=== PATIENT | male | born 1985 | race Caucasian/White ===

== ENCOUNTER 2020-12-25 22:03 | Observation (INO) ==
[2020-12-25] MEDS ORDERED: SODIUM CHLORIDE 0.9% 1,000 ML IV STA (22:56)
[2020-12-25] MEDS ORDERED: ONDANSETRON 4 MG/2 ML VIAL ONE (23:22)
[2020-12-25 23:34] LABS: ABG Base Excess -2.9 MMOL/L (-2.5-2.5); ABG HCO3 21.8 MMOL/L (20-26); ABG PCO2 51.6 MM HG (35-48); ABG PH 7.287 (7.35-7.45); ABG PO2 61.9 MM HG (80-95); ABG TCO2 21.5 MMOL/L (23-27); Allen Test Positive
[2020-12-25 23:59] LABS: Basophils % 0.2 % (0.0-0.8); Hematocrit 42.6 VOL% (42.0-52.0); Hemoglobin 14.1 GM/DL (14.0-18.0); Immature Granulocytes % 0.8 %; Immature Granulocytes Absolute 0.18 #; Lymphocytes # 1.2 10*3/uL (1.4-4.0); Lymphocytes % 5.5 % (21.2-54.2); Mean Corpuscular HGB Conc 33.1 GM/DL (32-36); Mean Corpuscular Volume 91.8 FL (87-102); Mean Platelet Volume 9.1 FL (9.6-12.0); Monocytes % 6.3 % (1.7-12.7); Neutrophils % 87.2 % (38.7-73.9); Platelet Count 250 T/CUMM (130-400); Red Blood Count 4.64 MC/CUMM (3.8-5.5); Red Cell Distribution Width 12.9 % (9.3-17.3); White Blood Count 21.3 T/CUMM (4-12)
[2020-12-26 00:18] LABS: Alanine Aminotransferase 64 U/L (16-61); Albumin 3.9 G/DL (3.4-5.0); Alkaline Phosphatase 51 U/L (45-117); Aspartate Amino Transferase 55 U/L (0-37); Blood Urea Nitrogen 19 MG/DL (7-18); Calcium 8.2 MG/DL (8.5-10.1); Carbon Dioxide 23 MMOL/L (21-32); Estimated Glom Filtration Rate 67 ML/MIN; Glucose 139 MG/DL (74-106); Osmolality,Calculated 284.3 MOS/KG (273-304); Potassium 3.4 MMOL/L (3.5-5.1); Sodium 141 MMOL/L (136-145); Total Protein 6.5 G/DL (6.4-8.2)
[2020-12-26] MEDS ORDERED: POTASSIUM CHLORIDE 20 MEQ TABLET PO STA (00:20)
[2020-12-26 00:27] LABS: Band Neutrophils 5 % (0-10); Lymphocytes 4 % (20-55); Platelet Estimate Normal; Segmented Neutrophils 85 % (50-85); Total Cells Counted 100
[2020-12-26 00:28] LABS: PT Patient Result 11.4 SECS (10.5-12.0)
[2020-12-26] MEDS ORDERED: VANCOMYCIN INJ 1,000 MG in SODIUM CHLORIDE 0.9% 250 ML IV STA (01:23)
[2020-12-26 01:38] LABS: Bilirubin,Urine Negative (Negative); Blood, Urine Negative (Negative); Glucose,Urine (UA) >=500 mg/dL (Negative); Granular Casts,Urine 6 /LPF (0-1); Ketones,Urine Negative (Negative); Mucus,Urine Occasional /LPF (Occasional); Nitrite,Urine Negative (Negative); Protein,Urine 100 MG/DL; RBC,Urine 4 /HPF (0-4); Squamous Epithelial Cell,Urine Occasional /HPF (0-10); Urine Appearance CLEAR (Clear); Urine Color Yellow (Yellow); Urine Specific Gravity 1.013 (1.001-1.035); Urine Urobilinogen < 2.0 EU/DL (0.2-1.0)
[2020-12-26 01:45] LABS: Barbiturates Screen,Urine Negative (Negative); Benzodiazepines Screen,Urine Negative (Negative); Cannabinoid Screen,Urine Negative (Negative); Opiate Screen,Urine Negative (Negative); Phencyclidine Screen,Urine Negative (Negative)
[2020-12-26] MEDS ORDERED: GLUCAGON 1 MG VIAL IM PRN (02:46)
[2020-12-26] MEDS ORDERED: ONDANSETRON 4 MG/2 ML VIAL IV PRN (02:46)
[2020-12-26] MEDS ORDERED: ACETAMINOPHEN 325 MG TABLET PO PRN (02:46)
[2020-12-26] MEDS ORDERED: DEXTROSE 50% 25 GM/50 ML VIAL IV PRN (02:46)
[2020-12-26 04:43] LABS: Basophils % 0.1 % (0.0-0.8); Hematocrit 40.7 VOL% (42.0-52.0); Hemoglobin 13.9 GM/DL (14.0-18.0); Immature Granulocytes % 0.4 %; Immature Granulocytes Absolute 0.06 #; Lymphocytes # 0.8 10*3/uL (1.4-4.0); Mean Corpuscular HGB Conc 34.2 GM/DL (32-36); Mean Corpuscular Volume 90.6 FL (87-102); Mean Platelet Volume 9.1 FL (9.6-12.0); Neutrophils % 90.5 % (38.7-73.9); Platelet Count 219 T/CUMM (130-400); Red Blood Count 4.49 MC/CUMM (3.8-5.5); Red Cell Distribution Width 12.9 % (9.3-17.3); White Blood Count 15.3 T/CUMM (4-12)
[2020-12-26 05:06] LABS: Albumin 3.9 G/DL (3.4-5.0); Bilirubin,Total 0.9 MG/DL (0.2-1.0); Calcium 8.2 MG/DL (8.5-10.1); Osmolality,Calculated 277.5 MOS/KG (273-304); Potassium 4.8 MMOL/L (3.5-5.1); Total Protein 6.5 G/DL (6.4-8.2)
[2020-12-26] MEDS: SODIUM CHLORIDE 0.9% 1,000 ML IV SCH ×2 (06:20→10:24)
[2020-12-26] MEDS ORDERED: ENOXAPARIN 40 MG/0.4 ML SYRINGE SUBCUT SCH (07:00)
[2020-12-26] MEDS: PANTOPRAZOLE 40 MG TABLET PO SCH ×2 (08:32→08:36)
[2020-12-26] MEDS: LEVOFLOXACIN INJ 750 MG/150 ML PREMIX IV SCH ×2 (08:32→08:36)
[2020-12-26 12:02] VITALS: BP 126/82
[2020-12-27] MEDS ORDERED: LEVOFLOXACIN 750 MG TABLET PO SCH (09:00)
== END 2020-12-26 13:27 | disposition home or self-care (01) ==
LOC: EDUNIT# → EDBD → N.EDINP 22:03 → N.ED 22:03 → N.5E 12-26 05:06
PROVIDERS: ADMIT Hospitalist; ATTEND Hospitalist

== ENCOUNTER 2021-07-08 00:49 | Inpatient (IN) ==
[2021-07-08] MEDS ORDERED: NALOXONE 0.4 MG/ML VIAL ONE (00:55)
[2021-07-08] MEDS ORDERED: NALOXONE 0.4 MG/ML VIAL IV PRN (00:57)
[2021-07-08] MEDS ORDERED: SODIUM CHLORIDE 0.9% 1,000 ML IV STA ×2 (00:57→04:05)
[2021-07-08 01:12] LABS: Basophils # 0.1 10*3/uL (0.0-0.2); Basophils % 0.5 % (0.0-0.8); Eosinophils # 0.1 10*3/uL (0.0-0.87); Eosinophils % 1.1 % (0.00-10.9); Hematocrit 43.8 VOL% (42.0-52.0); Hemoglobin 14.2 GM/DL (14.0-18.0); Immature Granulocytes % 0.6 %; Immature Granulocytes Absolute 0.07 #; Lymphocytes # 4.3 10*3/uL (1.4-4.0); Lymphocytes % 37.9 % (21.2-54.2); Mean Corpuscular HGB Conc 32.4 GM/DL (32-36); Mean Corpuscular Volume 92.6 FL (87-102); Mean Platelet Volume 8.9 FL (9.6-12.0); Monocytes % 6.3 % (1.7-12.7); Neutrophils % 53.6 % (38.7-73.9); Platelet Count 312 T/CUMM (130-400); Red Blood Count 4.73 MC/CUMM (3.8-5.5); Red Cell Distribution Width 12.9 % (9.3-17.3); White Blood Count 11.4 T/CUMM (4-12)
[2021-07-08 01:21] LABS: Allen Test Positive; Pt O2 Delivery Device Ventilator
[2021-07-08 01:22] LABS: ABG Base Excess -6.8 MMOL/L (-2.5-2.5); ABG Oxygen Saturation 98.3 % (95-100)
[2021-07-08 01:23] LABS: PT Patient Result 11.5 SECS (10.5-12.0)
[2021-07-08 01:25] LABS: ABG PCO2 76.8 MM HG (35-48); ABG PH 7.128 (7.35-7.45)
[2021-07-08] MEDS ORDERED: MEROPENEM 500 MG in SODIUM CHLORIDE 0.9% 100 ML IV ONE (01:42)
[2021-07-08 01:46] LABS: Alanine Aminotransferase 21 U/L (16-61); Albumin 3.7 G/DL (3.4-5.0); Alkaline Phosphatase 49 U/L (45-117); Aspartate Amino Transferase 11 U/L (0-37); Blood Urea Nitrogen 20 MG/DL (7-18); Calcium 8.1 MG/DL (8.5-10.1); Carbon Dioxide 25 MMOL/L (21-32); Estimated Glom Filtration Rate 64 ML/MIN; Glucose 374 MG/DL (74-106); Osmolality,Calculated 290.8 MOS/KG (273-304); Potassium 3.1 MMOL/L (3.5-5.1); Sodium 137 MMOL/L (136-145)
[2021-07-08 01:52] LABS: Bacteria,Urine Occasional /HPF (Few); Bilirubin,Urine Negative (Negative); Blood, Urine Negative (Negative); Glucose,Urine (UA) >=500 mg/dL (Negative); Hyaline Casts,Urine 13 /LPF (0-3); Ketones,Urine Negative (Negative); Mucus,Urine Occasional /LPF (Occasional); Nitrite,Urine Negative (Negative); Protein,Urine 30 MG/DL; RBC,Urine <1 /HPF (0-4); Squamous Epithelial Cell,Urine Occasional /HPF (0-10); Urine Appearance CLEAR (Clear); Urine Color Yellow (Yellow); Urine Specific Gravity 1.016 (1.001-1.035); Urine Urobilinogen < 2.0 EU/DL (<2.0)
[2021-07-08] MEDS ORDERED: VECURONIUM 10 MG VIAL IV ONE (02:01)
[2021-07-08] MEDS ORDERED: VECURONIUM 10 MG VIAL IV STA ×2 (02:02→03:20)
[2021-07-08 02:09] LABS: Barbiturates Screen,Urine Negative (Negative); Benzodiazepines Screen,Urine Negative (Negative); Cannabinoid Screen,Urine Negative (Negative); Opiate Screen,Urine Negative (Negative); Phencyclidine Screen,Urine Negative (Negative)
[2021-07-08 02:27] LABS: Allen Test Positive; Pt O2 Delivery Device Ventilator
[2021-07-08 02:28] LABS: ABG Base Excess -5.3 MMOL/L (-2.5-2.5); ABG HCO3 23.5 MMOL/L (20-26); ABG Oxygen Saturation 96.6 % (95-100); ABG PCO2 59.8 MM HG (35-48); ABG PH 7.213 (7.35-7.45); ABG PO2 99.8 MM HG (80-95); ABG TCO2 25.4 MMOL/L (23-27)
[2021-07-08] MEDS ORDERED: GLUCAGON 1 MG VIAL IM PRN (03:32)
[2021-07-08] MEDS ORDERED: MAGNESIUM SULF RIDER 4 GM/100 ML PREMIX IV PRN (03:32)
[2021-07-08] MEDS ORDERED: ACETAMINOPHEN 325 MG TABLET PO PRN (03:32)
[2021-07-08] MEDS ORDERED: ALBUTEROL 2.5 MG/3 ML NEB RESP TX PRN (03:32)
[2021-07-08] MEDS ORDERED: MAGNESIUM SULF RIDER 2 GM/50 ML PREMIX IV PRN (03:32)
[2021-07-08] MEDS ORDERED: POTASSIUM CHLORIDE RIDER 10 MEQ/100 ML PREMIX IV PRN (03:32)
[2021-07-08] MEDS ORDERED: ONDANSETRON 4 MG/2 ML VIAL IV PRN (03:32)
[2021-07-08] MEDS ORDERED: DEXTROSE 50% 25 GM/50 ML SYRINGE IV PRN (03:50)
[2021-07-08] MEDS ORDERED: ETOMIDATE 20 MG/10 ML VIAL IV ONE (03:57)
[2021-07-08] MEDS ORDERED: ROCURONIUM 100 MG/10 ML VIAL IV ONE (03:58)
[2021-07-08] MEDS: HEPARIN 5,000 UNIT/1 ML VIAL SUBCUT SCH ×2 (04:25→16:19)
[2021-07-08] MEDS: PANTOPRAZOLE 40 MG VIAL IV SCH (04:25)
[2021-07-08] MEDS: MIDAZOLAM 100 MG in SODIUM CHLORIDE 0.9% 80 ML IV PRN ×3 (04:38→20:46)
[2021-07-08] MEDS: CLINDAMYCIN INJ 600 MG/50 ML PREMIX IV SCH ×3 (04:40→20:32)
[2021-07-08 04:45] LABS: Acetaminophen 7.8 UG/ML (10-30); Salicylate < 2.8 MG/DL (2.8-20)
[2021-07-08 04:49] LABS: Albumin 2.2 G/DL (3.4-5.0); Osmolality,Calculated 295.4 MOS/KG (273-304); Potassium 2.8 MMOL/L (3.5-5.1); Total Protein 4.3 G/DL (6.4-8.2)
[2021-07-08 04:58] LABS: Calcium 5.2 MG/DL (8.5-10.1)
[2021-07-08] MEDS: SODIUM CHLORIDE 0.9% 1,000 ML IV SCH ×4 (05:00→22:38)
[2021-07-08] MEDS ORDERED: DIAZEPAM 10 MG/2 ML SYRINGE ONE (05:11)
[2021-07-08] MEDS ORDERED: ROCURONIUM 500 MG in SODIUM CHLORIDE 0.9% 500 ML IV PRN (05:18)
[2021-07-08] MEDS ORDERED: DIAZEPAM 10 MG/2 ML SYRINGE IM STA (05:20)
[2021-07-08 05:58] LABS: ABG Base Excess -4.2 MMOL/L (-2.5-2.5); ABG HCO3 20.8 MMOL/L (20-26); ABG Oxygen Saturation 89.2 % (95-100); ABG PCO2 60.6 MM HG (35-48); ABG PH 7.232 (7.35-7.45); ABG PO2 62.3 MM HG (80-95)
[2021-07-08 06:18] LABS: Basophils % 0.1 % (0.0-0.8); Eosinophils % 0.1 % (0.00-10.9); Hematocrit 37.7 VOL% (42.0-52.0); Immature Granulocytes % 0.3 %; Immature Granulocytes Absolute 0.02 #; Lymphocytes # 1.3 10*3/uL (1.4-4.0); Lymphocytes % 19.3 % (21.2-54.2); Mean Corpuscular HGB Conc 31.6 GM/DL (32-36); Monocytes % 2.2 % (1.7-12.7); Red Blood Count 3.97 MC/CUMM (3.8-5.5); Red Cell Distribution Width 13.1 % (9.3-17.3)
[2021-07-08 06:28] LABS: White Blood Count 6.7 T/CUMM (4-12)
[2021-07-08 06:29] LABS: Hemoglobin 11.9 GM/DL (14.0-18.0); Platelet Count 222 T/CUMM (130-400)
[2021-07-08] MEDS ORDERED: POTASSIUM CHLORIDE 20 MEQ PACK NG SCH (06:30)
[2021-07-08] MEDS: POTASSIUM BICARB EFFERVESCENT 20 MEQ TAB.EFF NG SCH ×4 (07:57→13:19)
[2021-07-08] MEDS ORDERED: CALCIUM GLUCONATE 2,000 MG in SODIUM CHLORIDE 0.9% 100 ML IV ONE (08:30)
[2021-07-08] MEDS: INSULIN LISPRO 100 UNIT/ML SUBCUT SCH ×4 (08:33→22:03)
[2021-07-08] MEDS ORDERED: MIDAZOLAM 2 MG/2 ML VIAL IV STA (08:56)
[2021-07-08] MEDS ORDERED: MIDAZOLAM 2 MG/2 ML VIAL ONE (09:01)
[2021-07-08 11:34] LABS: ABG Base Excess -2.7 MMOL/L (-2.5-2.5); ABG Oxygen Saturation 95.8 % (95-100); ABG PCO2 43.1 MM HG (35-48); ABG PH 7.345 (7.35-7.45); ABG PO2 74.6 MM HG (80-95); ABG TCO2 24.3 MMOL/L (23-27); Pt O2 Delivery Device Ventilator
[2021-07-08 11:56] LABS: Albumin 2.9 G/DL (3.4-5.0); Bilirubin,Total 2.4 MG/DL (0.20-1.00); Calcium 8.3 MG/DL (8.5-10.1); Osmolality,Calculated 275.7 MOS/KG (273-304); Potassium 4.5 MMOL/L (3.5-5.1); Total Protein 5.8 G/DL (6.4-8.2)
[2021-07-08] MEDS ORDERED: LACTATED RINGERS 1,000 ML IV SCH (12:30)
[2021-07-08 13:53] LABS: Calcium 8.2 MG/DL (8.5-10.1); Potassium 5.2 MMOL/L (3.5-5.1)
[2021-07-08] MEDS: ALBUTEROL/IPRATROPIUM 3 ML NEB RESP TX SCH (19:17)
[2021-07-09] MEDS: ALBUTEROL/IPRATROPIUM 3 ML NEB RESP TX SCH ×4 (01:22→19:42)
[2021-07-09 04:08] LABS: Basophils % 0.4 % (0.0-0.8); Eosinophils % 0.3 % (0.00-10.9); Hematocrit 35.2 VOL% (42.0-52.0); Hemoglobin 11.7 GM/DL (14.0-18.0); Immature Granulocytes % 0.3 %; Immature Granulocytes Absolute 0.03 #; Lymphocytes # 1.6 10*3/uL (1.4-4.0); Lymphocytes % 15.6 % (21.2-54.2); Mean Corpuscular HGB Conc 33.2 GM/DL (32-36); Mean Corpuscular Volume 90.3 FL (87-102); Mean Platelet Volume 8.8 FL (9.6-12.0); Monocytes % 4.4 % (1.7-12.7); Platelet Count 192 T/CUMM (130-400); Red Cell Distribution Width 13.2 % (9.3-17.3); White Blood Count 10.3 T/CUMM (4-12)
[2021-07-09 04:15] LABS: ABG Base Excess 1.1 MMOL/L (-2.5-2.5); ABG HCO3 26.2 MMOL/L (20-26); ABG Oxygen Saturation 98.8 % (95-100); ABG PCO2 43.5 MM HG (35-48); ABG PH 7.398 (7.35-7.45); ABG PO2 160.3 MM HG (80-95); ABG TCO2 27.6 MMOL/L (23-27); Allen Test Positive; Pt O2 Delivery Device Ventilator
[2021-07-09 04:29] LABS: Albumin 2.3 G/DL (3.4-5.0); Bilirubin,Total 2.6 MG/DL (0.20-1.00); Calcium 7.5 MG/DL (8.5-10.1); Osmolality,Calculated 279.4 MOS/KG (273-304); Potassium 3.7 MMOL/L (3.5-5.1); Total Protein 5.1 G/DL (6.4-8.2)
[2021-07-09] MEDS: HEPARIN 5,000 UNIT/1 ML VIAL SUBCUT SCH ×2 (04:29→16:40)
[2021-07-09] MEDS: CLINDAMYCIN INJ 600 MG/50 ML PREMIX IV SCH ×3 (04:29→20:05)
[2021-07-09] MEDS: PANTOPRAZOLE 40 MG VIAL IV SCH (04:30)
[2021-07-09] MEDS: MIDAZOLAM 100 MG in SODIUM CHLORIDE 0.9% 80 ML IV PRN ×2 (06:28→16:44)
[2021-07-09] MEDS: SODIUM CHLORIDE 0.9% 1,000 ML IV SCH ×3 (06:45→22:45)
[2021-07-09] MEDS ORDERED: POTASSIUM CHLORIDE RIDER 20 MEQ/100 ML PREMIX IV ONE (07:16)
[2021-07-09] MEDS: POTASSIUM CHLORIDE RIDER 20 MEQ/100 ML PREMIX IV PRN (07:22)
[2021-07-09] MEDS: INSULIN LISPRO 100 UNIT/ML SUBCUT SCH ×4 (07:43→23:23)
[2021-07-10] MEDS: ALBUTEROL/IPRATROPIUM 3 ML NEB RESP TX SCH ×4 (01:34→18:58)
[2021-07-10] MEDS: MIDAZOLAM 100 MG in SODIUM CHLORIDE 0.9% 80 ML IV PRN ×2 (04:30→14:47)
[2021-07-10] MEDS: PANTOPRAZOLE 40 MG VIAL IV SCH (04:30)
[2021-07-10] MEDS: CLINDAMYCIN INJ 600 MG/50 ML PREMIX IV SCH ×2 (04:30→11:56)
[2021-07-10] MEDS: HEPARIN 5,000 UNIT/1 ML VIAL SUBCUT SCH ×2 (04:30→16:24)
[2021-07-10 04:37] LABS: Allen Test Positive; Pt O2 Delivery Device Ventilator
[2021-07-10 04:40] LABS: ABG Base Excess 1.9 MMOL/L (-2.5-2.5); ABG HCO3 26.6 MMOL/L (20-26); ABG Oxygen Saturation 97.1 % (95-100); ABG PCO2 41.7 MM HG (35-48); ABG PH 7.422 (7.35-7.45); ABG PO2 87.2 MM HG (80-95); ABG TCO2 27.8 MMOL/L (23-27)
[2021-07-10 04:57] LABS: Basophils % 0.2 % (0.0-0.8); Eosinophils # 0.1 10*3/uL (0.0-0.87); Eosinophils % 0.9 % (0.00-10.9); Hematocrit 33.2 VOL% (42.0-52.0); Hemoglobin 10.8 GM/DL (14.0-18.0); Immature Granulocytes % 0.3 %; Immature Granulocytes Absolute 0.03 #; Lymphocytes # 0.8 10*3/uL (1.4-4.0); Lymphocytes % 9.1 % (21.2-54.2); Mean Corpuscular HGB Conc 32.5 GM/DL (32-36); Mean Corpuscular Volume 91.7 FL (87-102); Mean Platelet Volume 9.2 FL (9.6-12.0); Monocytes % 4.1 % (1.7-12.7); Neutrophils % 85.4 % (38.7-73.9); Platelet Count 198 T/CUMM (130-400); Red Blood Count 3.62 MC/CUMM (3.8-5.5); Red Cell Distribution Width 13.3 % (9.3-17.3); White Blood Count 8.7 T/CUMM (4-12)
[2021-07-10 05:13] LABS: Calcium 8.1 MG/DL (8.5-10.1); Potassium 3.5 MMOL/L (3.5-5.1)
[2021-07-10] MEDS: INSULIN LISPRO 100 UNIT/ML SUBCUT SCH ×4 (05:13→23:15)
[2021-07-10] MEDS: SODIUM CHLORIDE 0.9% 1,000 ML IV SCH (06:18)
[2021-07-10] MEDS ORDERED: FUROSEMIDE 40 MG/4 ML VIAL IV ONE (07:58)
[2021-07-10] MEDS: POTASSIUM CHLORIDE RIDER 20 MEQ/100 ML PREMIX IV PRN (09:44)
[2021-07-10] MEDS ORDERED: POTASSIUM PHOSPHATE 15 MMOL in SODIUM CHLORIDE 0.9% 100 ML IV ONE (12:00)
[2021-07-10] MEDS: cefTRIAXone 1,000 MG in SODIUM CHLORIDE 0.9% 100 ML IV SCH (14:56)
[2021-07-10] MEDS: VANCOMYCIN INJ 1,500 MG in SODIUM CHLORIDE 0.9% 500 ML IV SCH (16:24)
[2021-07-11] MEDS: ALBUTEROL/IPRATROPIUM 3 ML NEB RESP TX SCH ×4 (01:00→19:30)
[2021-07-11] MEDS: HEPARIN 5,000 UNIT/1 ML VIAL SUBCUT SCH ×2 (03:18→16:04)
[2021-07-11] MEDS: PANTOPRAZOLE 40 MG VIAL IV SCH (03:18)
[2021-07-11] MEDS: VANCOMYCIN INJ 1,500 MG in SODIUM CHLORIDE 0.9% 500 ML IV SCH ×2 (03:18→16:05)
[2021-07-11 03:48] LABS: Basophils % 0.3 % (0.0-0.8); Eosinophils # 0.3 10*3/uL (0.0-0.87); Eosinophils % 3.3 % (0.00-10.9); Hematocrit 32.6 VOL% (42.0-52.0); Hemoglobin 10.7 GM/DL (14.0-18.0); Immature Granulocytes % 0.4 %; Immature Granulocytes Absolute 0.03 #; Lymphocytes % 13.7 % (21.2-54.2); Mean Corpuscular HGB Conc 32.8 GM/DL (32-36); Mean Corpuscular Volume 90.6 FL (87-102); Mean Platelet Volume 8.9 FL (9.6-12.0); Monocytes % 5.4 % (1.7-12.7); Neutrophils % 76.9 % (38.7-73.9); Platelet Count 199 T/CUMM (130-400); Red Cell Distribution Width 13.3 % (9.3-17.3); White Blood Count 7.5 T/CUMM (4-12)
[2021-07-11 04:00] LABS: Osmolality,Calculated 285.8 MOS/KG (273-304); Potassium 3.6 MMOL/L (3.5-5.1)
[2021-07-11 04:26] LABS: ABG Base Excess 3.5 MMOL/L (-2.5-2.5); ABG HCO3 27.5 MMOL/L (20-26); ABG Oxygen Saturation 99.5 % (95-100); ABG PCO2 39.7 MM HG (35-48); ABG TCO2 24.6 MMOL/L (23-27)
[2021-07-11] MEDS: INSULIN LISPRO 100 UNIT/ML SUBCUT SCH ×2 (06:04→12:33)
[2021-07-11] MEDS ORDERED: ZIPRASIDONE 20 MG/1 ML VIAL IM ONE (11:03)
[2021-07-11] MEDS ORDERED: HALOPERIDOL 5 MG/ML AMP IM ONE (11:03)
[2021-07-11] MEDS ORDERED: LORazepam 2 MG/1 ML VIAL IV ONE (11:03)
[2021-07-11] MEDS: cefTRIAXone 1,000 MG in SODIUM CHLORIDE 0.9% 100 ML IV SCH (15:27)
[2021-07-12] MEDS: ALBUTEROL/IPRATROPIUM 3 ML NEB RESP TX SCH ×3 (02:09→12:55)
[2021-07-12] MEDS: PANTOPRAZOLE 40 MG VIAL IV SCH (03:47)
[2021-07-12] MEDS: VANCOMYCIN INJ 1,500 MG in SODIUM CHLORIDE 0.9% 500 ML IV SCH (03:49)
[2021-07-12] MEDS: HEPARIN 5,000 UNIT/1 ML VIAL SUBCUT SCH (03:51)
[2021-07-12 05:03] LABS: Basophils # 0.1 10*3/uL (0.0-0.2); Basophils % 0.7 % (0.0-0.8); Eosinophils # 0.3 10*3/uL (0.0-0.87); Hematocrit 35.7 VOL% (42.0-52.0); Hemoglobin 11.8 GM/DL (14.0-18.0); Immature Granulocytes % 0.6 %; Immature Granulocytes Absolute 0.04 #; Lymphocytes # 1.3 10*3/uL (1.4-4.0); Lymphocytes % 19.7 % (21.2-54.2); Mean Corpuscular HGB Conc 33.1 GM/DL (32-36); Mean Corpuscular Volume 91.1 FL (87-102); Mean Platelet Volume 9.4 FL (9.6-12.0); Monocytes % 8.1 % (1.7-12.7); Neutrophils % 66.9 % (38.7-73.9); Platelet Count 246 T/CUMM (130-400); Red Blood Count 3.92 MC/CUMM (3.8-5.5); Red Cell Distribution Width 13.1 % (9.3-17.3); White Blood Count 6.7 T/CUMM (4-12)
[2021-07-12 05:18] LABS: ABG Base Excess 1.4 MMOL/L (-2.5-2.5); ABG HCO3 25.3 MMOL/L (20-26); ABG PCO2 37.7 MM HG (35-48); ABG PH 7.445 (7.35-7.45); ABG PO2 61.4 MM HG (80-95); ABG TCO2 26.5 MMOL/L (23-27)
[2021-07-12 05:24] LABS: Calcium 8.6 MG/DL (8.5-10.1); Potassium 3.5 MMOL/L (3.5-5.1)
[2021-07-12 11:39] VITALS: BP 139/77
== END 2021-07-12 14:33 | disposition home or self-care (01) | DRG 917 ==
LOC: EDBD → EDUNIT# → N.ED 00:49 → SUATTDRO 03:32 → N.EDINP 03:32 → N.CC 08:53 → N.TELES 07-12 02:47
PROVIDERS: ADMIT Physician Assistant; ATTEND Internal Medicine